=== PATIENT | male | born 1985 ===

== ENCOUNTER 2019-10-23 19:31 | Emergency (ER) | payer OTHER ==
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
[2019-10-23 22:11] VITALS: BP 121/71
== END 2019-10-23 21:33 | disposition home or self-care (01) ==
LOC: ER 19:31
DX: M25.511 Pain in right shoulder (principal); M89.8X1 Other specified disorders of bone, shoulder; M79.10 Myalgia, unspecified site; V49.50XA Passenger injured in collision with unspecified motor vehicles in traffic accident, initial encounter; F17.210 Nicotine dependence, cigarettes, uncomplicated
CPT/HCPCS: 99283